=== PATIENT | female | born 1985 | race Caucasian/White ===

== ENCOUNTER 2025-08-11 08:00 | Outpatient (CLI) | payer OTHER | END 2025-08-11 12:57 | disposition home or self-care (01) | LOC: SCSMRI 08:00 | PROVIDERS: ATTEND Nurse Practitioner Family | DX: M54.16 Radiculopathy, lumbar region (principal); M79.605 Pain in left leg; M43.10 Spondylolisthesis, site unspecified; M48.061 Spinal stenosis, lumbar region without neurogenic claudication; M48.07 Spinal stenosis, lumbosacral region | CPT/HCPCS: 72148 ==